=== PATIENT | male | born 1990 | race Caucasian/White ===

== ENCOUNTER 2017-12-22 00:43 | Emergency (ER) | payer BC ==
[~2017-12-22] VITALS: Ht 188 cm; Wt 91.3 kg
[2017-12-22 00:49] VITALS: BP 168/83
[2017-12-22] MEDS ORDERED: PROPARACAINE OPHTH 0.5%, 15ML ONE ×2 (01:02→01:06)
[2017-12-22] MEDS ORDERED: PROPARACAINE OPHTH 0.5%, 15ML EACHEYE ONE (01:30)
[2017-12-22] MEDS ORDERED: HYDROcodone/APAP 5/325 TABLET PO ONE (01:30)
== END 2017-12-22 01:53 | disposition home or self-care (01) ==
LOC: ED 01:41
DX: T26.42XA Burn of left eye and adnexa, part unspecified, initial encounter (principal); T26.41XA Burn of right eye and adnexa, part unspecified, initial encounter; H16.8 Other keratitis; X58.XXXA Exposure to other specified factors, initial encounter; Y93.89 Activity, other specified; Y92.89 Other specified places as the place of occurrence of the external cause; Y99.8 Other external cause status
CPT/HCPCS: 99283